=== PATIENT | male | born 1955 | race Hispanic/Latino ===

== ENCOUNTER 2023-02-05 21:21 | Inpatient (IN) | payer MEDICARE ==
[~2023-02-05] VITALS: Ht 182.9 cm; Wt 102.8 kg
[~2023-02-05 21:21] MED LIST: ENZA40CA PO; LEVO25CA4 PO
[2023-02-05] MEDS ORDERED: ONDANSETRON 4MG INJ IVP ONE (22:00)
[2023-02-05] MEDS ORDERED: 0.9%NACL 1000ML 1,000 ML IV ONE (22:00)
[2023-02-05 22:02] LABS: BASOPHILS % (AUTO) 0.4 % (0.0-5.0); HEMATOCRIT 30.3 % (42-54); LYMPHOCYTES % (AUTO) 8.7 % (21.0-51.0); MEAN CORPUSCULAR HEMOGLOBIN 27.6 pg (27.0-33.0); MEAN CORPUSCULAR HGB CONC 32.3 g/dL (32.0-36.0); MEAN CORPUSCULAR VOLUME 85.4 fL (79-99); MONOCYTES % (AUTO) 7.5 % (3.0-13.0); NEUTROPHILS % (AUTO) 82.8 % (40.0-77.0); PLATELET COUNT (AUTO) 265 K/uL (130-400); RED BLOOD CELL COUNT(AUTO) 3.55 MIL/uL (4.50-6.20); RED CELL DISTRIBUTION WIDTH 17.2 % (11.0-15.5); WHITE BLOOD COUNT (AUTO) 7.2 K/uL (4.8-10.8)
[2023-02-05 22:16] LABS: CREATININE 1.1 mg/dL (0.5-1.5); MAGNESIUM 1.6 mg/dL (1.80-2.40); TOTAL PROTEIN, SERUM 6.2 g/dL (6.0-8.3)
[2023-02-05 22:21] LABS: POTASSIUM 2.8 mmol/L (3.5-5.1)
[2023-02-05] MEDS ORDERED: MAGNESIUM 2GM PREMIX 50ML 50 ML IV SCH (22:30)
[2023-02-05] MEDS ORDERED: KCL 20 MEQ ERTAB PO ONE (22:30)
[2023-02-05] MEDS: 0.9%NACL 1000ML 1,000 ML IV SCH (22:56)
[2023-02-05] MEDS ORDERED: ONDANSETRON 4MG INJ IVP PRN (23:00)
[2023-02-05] MEDS ORDERED: LIDOCAINE HCL-MPF 1% 2ML VIAL IV PRN (23:00)
[2023-02-05] MEDS ORDERED: POTASSIUM CHLORIDE 20MEQ/100ML 100 ML IV PRN (23:00)
[2023-02-05] MEDS ORDERED: MAGNESIUM 2GM PREMIX 50ML 50 ML IV PRN (23:00)
[2023-02-05] MEDS ORDERED: DIPHENOXYLATE HCL/ATROPINE 2.5/0.025 MG TAB PO ONE (23:00)
[2023-02-05] MEDS ORDERED: POTASSIUM CHLORIDE 10% ELIXIR 20 MEQ/15 ML UDCUP PO PRN (23:00)
[2023-02-05 23:30] VITALS: BP 130/73
[2023-02-06] MEDS: SIMETHICONE 80 MG TAB.CHEW PO SCH ×2 (00:19→22:20)
[2023-02-06] MEDS: KCL 20 MEQ ERTAB PO PRN ×2 (01:43→04:37)
[2023-02-06 04:27] LABS: APPEARANCE,URINE CLEAR (CLEAR); BILIRUBIN,URINE NEGATIVE (NEGATIVE); COLOR,URINE LIGHT-YELLOW (YELLOW); GLUCOSE, URINE (UA) NEGATIVE (NEGATIVE); KETONES,URINE 20 mg/dL (NEGATIVE); LEUKOCYTE ESTERASE ,URINE NEGATIVE Leu/uL (NEGATIVE); NITRATE,URINE NEGATIVE (NEGATIVE); OCCULT BLOOD,URINE NEGATIVE (NEGATIVE); PH,URINE 5.5 (5.0-8.0); PROTEIN,URINE NEGATIVE (NEGATIVE); UROBILINOGEN,URINE 0.2 mg/dL (0.2-1.0)
[2023-02-06 04:43] VITALS: BP 116/72
[2023-02-06 07:30] VITALS: BP 118/69
[2023-02-06] MEDS: 0.9%NACL 1000ML 1,000 ML IV SCH ×2 (09:00→20:56)
[2023-02-06 11:30] VITALS: BP 133/72
[2023-02-06] MEDS ORDERED: DIPHENOXYLATE HCL/ATROPINE 2.5/0.025 MG TAB PO SCH (13:00)
[2023-02-06] MEDS: PANTOPRAZOLE 40 MG/VIAL IVP SCH (15:19)
[2023-02-06] MEDS ORDERED: IOHEXOL 350 MG/ML 100ML INFUS..BTL IV ONE (15:43)
[2023-02-06 16:00] VITALS: BP 135/79
[2023-02-06 20:04] VITALS: BP 111/66
[2023-02-06 23:58] VITALS: BP 103/64
[2023-02-07] MEDS: PANTOPRAZOLE 40 MG/VIAL IVP SCH (01:33)
[2023-02-07 05:03] VITALS: BP 98/66
[2023-02-07] MEDS: 0.9%NACL 1000ML 1,000 ML IV SCH (05:48)
[2023-02-07 08:38] VITALS: BP 109/71
[2023-02-07 12:05] VITALS: BP 118/72
== END 2023-02-07 15:00 | disposition home or self-care (01) | DRG 392 ==
LOC: EDH 21:21 → EDHIP 22:31 → 3DH 23:13
PROVIDERS: ADMIT Internal Medicine Hematology & Oncology; ATTEND Internal Medicine Hematology & Oncology
DX: R11.2 Nausea with vomiting, unspecified (principal); C78.7 Secondary malignant neoplasm of liver and intrahepatic bile duct; E87.6 Hypokalemia; E86.0 Dehydration; T45.1X5A Adverse effect of antineoplastic and immunosuppressive drugs, initial encounter; E03.9 Hypothyroidism, unspecified; C61 Malignant neoplasm of prostate; I10 Essential (primary) hypertension
CPT/HCPCS: 36415; 71045; 74178; 80053; 81003; 83690; 83735; 84484; 85025; 87507; 93005; C9113; G0378; J2405; J3475; J7030; Q9967

== ENCOUNTER 2023-05-30 10:14 | Day surgery (SDC) | payer MEDICARE ==
[2023-05-28 12:44] VITALS: BP 129/72
[2023-05-28 13:25] LABS: BASOPHILS % (AUTO) 0.7 % (0.0-5.0); EOSINOPHILS % (AUTO) 0.6 % (0.0-8.0); LYMPHOCYTES % (AUTO) 8.7 % (21.0-51.0); MEAN CORPUSCULAR HEMOGLOBIN 27.1 pg (27.0-33.0); MEAN CORPUSCULAR HGB CONC 30.6 g/dL (32.0-36.0); MEAN CORPUSCULAR VOLUME 88.7 fL (79-99); MONOCYTES % (AUTO) 6.6 % (3.0-13.0); PLATELET COUNT (AUTO) 242 K/uL (130-400); RED BLOOD CELL COUNT(AUTO) 4.06 MIL/uL (4.50-6.20); RED CELL DISTRIBUTION WIDTH 13.4 % (11.0-15.5)
[2023-05-28 13:33] LABS: CREATININE 1.6 mg/dL (0.5-1.5); POTASSIUM 4.8 mmol/L (3.5-5.1)
[2023-05-30] VITALS (16 sets, daily range): BP systolic 134–153; BP diastolic 78–90
[~2023-05-30] VITALS: Ht 182.9 cm; Wt 100.1 kg
[~2023-05-30 10:14] MED LIST changes: -ENZA40CA PO; -LEVO25CA4 PO; +MIDO10TA PO; +NAPR-1141 PO
[2023-05-30] MEDS ORDERED: LACTATED RINGERS 1000ML 1,000 ML IV ONE (10:33)
[2023-05-30] MEDS ORDERED: CEFTRIAXONE 1G VIAL ONE (11:58)
[2023-05-30] MEDS ORDERED: IOHEXOL-350 50ML VIAL IV ONE (15:41)
[2023-05-30] MEDS ORDERED: ONDANSETRON 4MG INJ ONE (15:43)
[2023-05-30] MEDS ORDERED: ROCURONIUM 10MG/1ML SYR 10 MG/ML ML ONE (15:43)
[2023-05-30] MEDS ORDERED: FENTANYL CITRATE PF 50 MCG/1 ML 2ML VIAL ONE ×2 (15:44→16:43)
[2023-05-30] MEDS ORDERED: MIDAZOLAM HCL 1 MG/ML 2ML VIAL ONE (15:44)
[2023-05-30] MEDS ORDERED: PROPOFOL 10 MG/ML 20ML VIAL IV ONE (15:57)
[2023-05-30] MEDS ORDERED: EPHEDRINE SULFATE 50 MG/ML AMPULE ONE (16:12)
[2023-05-30] MEDS ORDERED: PHENAZOPYRIDINE HCL 200 MG TABLET PO ONE (18:00)
== END 2023-05-30 18:38 | disposition home or self-care (01) ==
LOC: DAH 10:14
PROVIDERS: ATTEND Urology
DX: N13.1 Hydronephrosis with ureteral stricture, not elsewhere classified (principal); Z20.822 Contact with and (suspected) exposure to COVID-19; N18.9 Chronic kidney disease, unspecified; N32.3 Diverticulum of bladder; R59.0 Localized enlarged lymph nodes; K21.9 Gastro-esophageal reflux disease without esophagitis; Z98.890 Other specified postprocedural states; Z85.46 Personal history of malignant neoplasm of prostate
CPT/HCPCS: 87426; 80048; 85025; 36415; 93005; 52332; 74420; A6260; J7120 ×2; C1769; C1758; J3010 ×2; J3490; J0696; J2250; J2704; J2405; Q9967; A4358; C2617

== ENCOUNTER 2023-06-17 14:37 | Emergency (ER) | payer MEDICARE ==
[~2023-06-17] VITALS: Ht 182.9 cm; Wt 90.7 kg
[2023-06-17 15:11] LABS: BASOPHILS # (AUTO) 0.05 K/uL (0.00-0.20); BASOPHILS % (AUTO) 0.4 % (0.0-5.0); EOSINOPHILS # (AUTO) 0.02 K/uL (0.00-0.70); EOSINOPHILS % (AUTO) 0.2 % (0.0-8.0); HEMATOCRIT 32.9 % (42-54); IMMATURE GRANULOCYTE ABSOLUTE 0.12 K/uL (0-1); LYMPHOCYTES % (AUTO) 8.3 % (21.0-51.0); MEAN CORPUSCULAR HGB CONC 34.3 g/dL (32.0-36.0); MEAN CORPUSCULAR VOLUME 81.6 fL (79-99); MONOCYTES # (AUTO) 0.9 K/uL (0.1-1.0); MONOCYTES % (AUTO) 7.1 % (3.0-13.0); PLATELET COUNT (AUTO) 206 K/uL (130-400); RED BLOOD CELL COUNT(AUTO) 4.03 MIL/uL (4.50-6.20); RED CELL DISTRIBUTION WIDTH 17.2 % (11.0-15.5); WHITE BLOOD COUNT (AUTO) 12.1 K/uL (4.8-10.8)
[2023-06-17 15:16] LABS: POTASSIUM 4.5 mmol/L (3.5-5.1)
[2023-06-17 15:26] LABS: ALBUMIN 2.9 g/dL (3.5-5.0); BILIRUBIN,TOTAL 11.2 mg/dL (0.2-1.0); TOTAL PROTEIN, SERUM 6.4 g/dL (6.0-8.3)
[2023-06-17] MEDS ORDERED: 0.9%NACL 1000ML 1,000 ML IV ONE ×2 (15:30→19:00)
[2023-06-17] MEDS ORDERED: KETOROLAC 30MG VIAL (30MG/ML) IVP ONE (15:30)
[2023-06-17] MEDS ORDERED: ONDANSETRON 4MG INJ IVP ONE (15:30)
[2023-06-17] MEDS ORDERED: MORPHINE 4 MG SYG IVP ONE (15:30)
[2023-06-17 18:33] LABS: APPEARANCE,URINE CLOUDY (CLEAR); BILIRUBIN,URINE 2 mg/dL (NEGATIVE); COLOR,URINE DARK-YELLOW (YELLOW); GLUCOSE, URINE (UA) NEGATIVE (NEGATIVE); KETONES,URINE 10 mg/dL (NEGATIVE); LEUKOCYTE ESTERASE ,URINE 75 Leu/uL (NEGATIVE); NITRATE,URINE NEGATIVE (NEGATIVE); OCCULT BLOOD,URINE LARGE (NEGATIVE); PH,URINE 5.5 (5.0-8.0); PROTEIN,URINE 50 mg/dL (NEGATIVE)
[2023-06-17 18:47] LABS: ADD UA MICROSCOPIC YES
[2023-06-17 18:52] LABS: BACTERIA,URINE MOD /HPF (None Seen); MUCUS,URINE RARE LPF (None Seen); RBC,URINE TNTC /HPF (0-1); SQUAMOUS EPITHELIAL CELL,UR RARE /HPF (0-2)
[2023-06-17] MEDS ORDERED: CEFD300C3 PO (19:08)
[2023-06-17] MEDS ORDERED: CEFTRIAXONE 1G VIAL IVPB ONE (19:30)
[2023-06-17 20:20] VITALS: BP 112/88; PULSE 92; RESP 16; O2SAT 98
[2023-06-20] MEDS ORDERED: ONDA-105 PO (12:25)
[2023-06-20] MEDS ORDERED: OXYB5TAB15 PO (12:25)
[2023-06-20] MEDS ORDERED: HYDR-4060 PO (12:25)
== END 2023-06-17 20:22 | disposition home or self-care (01) ==
LOC: EDH 14:37
DX: N13.30 Unspecified hydronephrosis (principal); N39.0 Urinary tract infection, site not specified; I10 Essential (primary) hypertension; Z79.899 Other long term (current) drug therapy
CPT/HCPCS: 99285; 96374; 96375; 96361; J7030; J0696; J2405; J2270; 36415; 71045; 74176; 80053; 81001; 84484; 85025; 87088; 93005